=== PATIENT | male | born 2005 | race Caucasian/White ===

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

== ENCOUNTER → 2025-08-28 | Outpatient (CLI) | payer OTHER, SELFPAY ==
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
--- NOTE | 2025-08-28 07:55 | US_ITS ---
PROCEDURE: ABDOMEN LIMITED 08/28/2025 REASON FOR EXAM: ASSESS FOR CAUSE OF PAIN, RUQ PAIN TECHNIQUE: Procedure Code: USABDL Modality: US Procedure: ABDOMEN LIMITED COMPARISON: None FINDINGS: Liver: Diffusely echogenic suggesting fatty infiltration. Liver measures 13.4 cm. Gallbladder: No stones, sludge, wall thickening or tenderness. Common bile duct: Normal measuring 2.6 mm . Pancreas: Normal Other: Visualized portions of the right kidney are unremarkable. No right upper quadrant ascites. US/Abdomen Limited IMPRESSION: Fatty infiltration of the liver. Reading Location: [place] [id number]
[2025-08-28 08:45] LABS: Hematocrit 43.6 % (40-54); Hemoglobin 15.1 g/dL (13.0-16.5); Immature Granulocytes Count 0.010 X10^3/uL (0.0-0.0); Mean Corp Hgb Conc 34.6 g/dL (32-36); Mean Corpuscular Volume 85.8 fL (80-94); Mean Platelet Vol. 9.6 fl (6.2-12.0); NRBC Flagged by Analyzer 0 % (0-5); Platelet Count 321 K/mm3 (150-450); RBC Distribution Width CV 11.4 % (11.6-14.6); RBC Distribution Width SD 35.6 fl (35.1-43.9); Red Blood Count 5.08 M/mm3 (4.6-6.2); White Blood Count 5.7 K/mm3 (4.4-11.0)
[2025-08-28 09:33] LABS: Amylase 30 U/L (28-100); Lipase 19 U/L (13-75)
[2025-08-28 09:50] LABS: AST(SGOT) 25 U/L (<=37); Albumin, Serum 4.6 g/dL (3.5-5.0); Alkaline Phosphatase 90 U/L (40-129); Anion Gap 11 (5-15); BUN 12 mg/dL (4-19); BUN/Creat Ratio 12.4 RATIO (10-20); Calcium,Total 9.7 mg/dL (7.6-11.0); Carbon Dioxide 25.4 mmol/L (21.0-32.0); Chloride 103 mmol/L (98-108); Globulin 3.0 g/dL (2.2-4.2); Glucose 100 mg/dL (70-99); Potassium 4.1 mmol/L (3.3-5.1)
[2025-08-28 10:24] LABS: Alanine Aminotransfer ALT/SGPT 28 U/L (<=46)
== END | disposition home or self-care (01) ==
LOC: US 07:50
PROVIDERS: PCP Nurse Practitioner Family; Referring Provider Nurse Practitioner Family; Visit Provider Nurse Practitioner Family
DX: R10.11 Right upper quadrant pain (principal)
CPT/HCPCS: 36415; 76705; 80053; 82150; 83690; 85025

== ENCOUNTER 2025-09-04 12:11 | Day surgery (SDC) | payer OTHER, SELFPAY ==
--- NOTE | 2025-09-03 14:04 | HP.PCM_ITS ---
History and Physical Date of Admission: 09/04/25 Date of Service: 09/02/25 MR#: [id number] Acct: [id number] Name: HEIKE AMAYA Rep #: [id number] : 2005 Provider: Dr. Shelia Gerber MD Age/Sex: 19/M Location: [facility] Status: Signed Intake Vital Signs 06/09/2508:59 09/02/2510:07 Height 5 ft 10 in 5 ft 10 in Weight: 200 lb BMI 28.7 BP 146/88 H Blood Pressure Location Rt brachial Position Sitting Respiration 14 Pulse 71 Pulse Source NIBP Temp 98.2 F Temp Source Temporal Pulse Oximetry (%) 98 Oxygen Delivery Method room air Intake Visit Reasons: gallbladder Life Advisor Required: No Accompanied by: Mother Is patient in pain?: No Allergies amoxicillin Allergy (Verified 09/02/25 11:36) Hives Medications ?Medication ?Instructions ?Recorded ?Confirmed ?Type omeprazole 20 mg capsule,delayed 40 mg PO QDAY 09/02/25 09/02/25 History release sucralfate 1 gram tablet 1 g PO 4X/DAY 09/02/25 09/02/25 History Medication Reconciliation completed?: Yes [facility] Medical History (Updated 09/02/25 @ 12:[address] Shelia Gerber MD) Heartburn Non-smoker RUQ pain Acute otitis media, right Physical exam, pre-employment Surgical History (Updated 09/02/25 @ 11:37 by Rhonda Lopez) History of wisdom tooth extraction Family History Father Hypertension Mother Asthma Diabetes GERD (gastroesophageal reflux disease) Depression Social History (Updated 09/02/25 @ 10:08 by Mónica Gill) Smoking Status: Never smoker Smokeless tobacco user: snus alcohol intake: never substance use type: does not use HPI HPI HPI: 19-year-old male presents due to right upper quadrant pain with his mom. Patient is had this for about 6 months has been on omeprazole 20 mg p.o. daily did increase to 40 mg p.o. daily about a month ago. Patient does notes pain if he does not take his medication and has an energy drink. Patient also states he had severe right upper quadrant pain at Thanksgiving even before getting up from the table while he was on the medication but states this pain is similar to his previous pain with the reflux but was more severe. Patient states the pain only lasts for several minutes and did resolve. Patient is never had an EGD. Patient will have an ultrasound of the gallbladder showed normal wall, no Pericholecystic fluid, no gallstones, normal common bile duct, normal LFTs on labs. ROS General General: No weight change, fatigue, colon cancer or breast cancer HEENT HEENT: No difficulty swallowing, eye injury, eye surgery or swollen glands Endo Endocrine: No thyroid disease, diabetes mellitus or thyroid cancer Skin Skin: No rash or changing moles Musc Musculoskeletal: No back problems, arthritis, rheumatoid arthritis or gout Cardio Cardiovascular: No murmur, pacemaker, heart disease, atrial fibrillation, high blood pressure, heart attack or heart stent Psych Psychiatric: No depression or anxiety Resp Respiratory: No shortness of breath, No sleep apnea, No cough, No COPD, No asthma and No emphysema Gastro Gastrointestinal: Yes abdominal pain, No nausea or vomiting, No diarrhea, No constipation, No blood in stool, Yes acid reflux, No hemorrhoids, Yes ulcers, No gallbladder problem and No black,tarry stools Terrance Hematologic: No blood thinners, No blood disorders, No bleeding, No anemia and No blood clots Neuro Neurologic: No numbness and No tingling Exam Const General: cooperative, healthy appearing, comfortable and no acute distress [facility] Head: normocephalic and atraumatic Neck Neck: supple Resp Effort & Inspection: normal respiratory effort Cardio Rate: regular rate GI Inspection: non-distended Palpation: soft and nontender Skin General: no rashes or lesions noted Neuro General: CN's II-XI intact bilaterally Extrem General: normal to inspection Psych Mental Status: mental status grossly normal Attitude: cooperative Assessment and Plan Assessment and Plan (1) RUQ pain: Status: Acute (2) Heartburn: Status: Acute Orders: Orders Hepatobilliary Img w/Pharm Int Today R10.11 - Right upper quadrant pain Plan Patient thinks he does have Carafate from his PCP will plan to pick that up and started again. Plan also order HIDA scan as his gallbladder ultrasound did not show any stones. History does sound more like gastric in etiology. I have discussed the above with the patient. I have offered the patient esophagogastroduodenoscopy for evaluation. I have explained the risks/benefits of the procedure and described the procedure. I have discussed the risks with the patient, including but not limited to: infection, bleeding, perforation of the GI tract requiring emergency surgery, inability to complete the procedure, injury to any internal organs, complications of anesthesia, etc. - the patient understands and agrees to proceed. I have answered all the patient's questions to the patient's satisfaction and the patient has no further questions. Shelia Gerber M.D. Pager: [phone] [facility] [address] [place] [address], [address] [place] [address] Office: [phone] Coding Level of Care Code Off vis,new,level 3 Diagnoses RUQ pain R10.11 Heartburn R12 Additional Codes Intake - Is patient in pain?: No (1126F) Intake - Medication Reconciliation completed?: Yes (1160F) 09/02/25 1210 <Electronically signed by Shelia Gerber MD> Date Shelia Gerber MD
[2025-09-04] VITALS (9 sets, daily range): BP systolic 117–126; BP diastolic 64–73; PULSE 52–68; RESP 12–20; TEMP 36.6–36.8; O2SAT 97–100; BMI 27.8
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
[2025-09-04] MEDS: Lactated Ringers 1,000 ML 15 ML IV (12:43)
--- NOTE | 2025-09-04 13:13 | PRE.ANES_ITS ---
ASA Classification* ASA Classification ASA Classification: 2 Assessment & Plan Anesthesia* Anesthesia Assessment Anesthesia Assessment: Discussed sedation and/or anesthesia options, risks, benefits, and alternatives with patient/parents/legal guardian/POA. Questions invited. The patient/parents/legal guardian/POA seems to understand and agrees to proceed with anesthesia plan. Reviewed the physical assessment, medical history, allergy history and patient home medications list prior to surgery/procedure/anesthetic and documented any changes. Performed airway and anesthesia risk assessments. Anesthesia Type Anesthesia Type: MAC History Source History Obtained from:: Patient and Chart Anesthesia Focused Assessment* Temperature: 98.2 F Pulse Rate: 60 Blood Pressure: 126/73 Respiratory Rate: 12 Pulse Ox: 100 Oxygen Delivery Method: Room Air Airway Assessment Mouth opens: >3 cm Mallampati Score: II Teeth Condition: Intact Neck Range of motion (ROM): Full ROM Labs Anesthesia Preop lab: CBC WBC, (4.4-11.0) 5.7 K/mm3 08/28/25, 07:53 RBC, (4.6-6.2) 5.08 M/mm3 08/28/25, 07:53 Hgb, (13.0-16.5) 15.1 g/dL 08/28/25, 07:53 Hct, (40-54) 43.6 % 08/28/25, 07:53 Plt Count, (150-450) 321 K/mm3 08/28/25, 07:53 CHEMISTRY Potassium, (3.3-5.1) 4.1 mmol/L 08/28/25, 07:53 Sodium, (133-145) 140 mmol/L 08/28/25, 07:53 BUN, (4-19) 12 mg/dL 08/28/25, 07:53 Creatinine, (0.70-1.20) 1.00 mg/dL 08/28/25, 07:53 Glucose, (70-99) 100 mg/dL H 08/28/25, 07:53 COAG Pre-Assessment Diagnosis/Proposed Procedure Planned Operative Procedure(s): EGD Anesthesia History Anesthesia History - bisque ware dipper: Anesthesia History - bisque ware dipper Hx Hospitalization No 09/02/25 11:37 Any Problems With Anesthesia No 09/02/25 11:37 Cholinesterase deficiency No 09/02/25 11:37 You/Your Family Experience No 09/02/25 11:37 fever (hyperthermia) with Relationship Recent Exposure to Contagious No 09/04/25 12:33 Disease Does patient have nerve No 09/02/25 11:37 stimulator Patient instructed to have device shut off --Does patient have Pacemaker No 09/04/25 12:33 or ICD? When Was Last Pacemaker Check QUESTION #4 FULL TEXT: You/Your Family Experience fever (hyperthermia) with Anesthesia Last Oral Intake Last Oral intake: Last Oral Intake NPO since 20:00 09/04/25 12:33 Meds taken in AM with sips of No 09/04/25 12:33 water? Meds patient instructed to take am of surgery PONV PONV - bisque ware dipper: PONV - bisque ware dipper Female No 09/02/25 11:37 HX of Motion Sickness No 09/02/25 11:37 HX of N/V After Surgery No 09/02/25 11:37 Non-Smoker Yes 09/02/25 11:37 Duration of Surgery greater No 09/02/25 11:37 than 60 minutes Number of Risk Factors 1 09/02/25 11:37 PONV Score Low Risk 09/02/25 11:37 Height & Weight Height & Weight: Anesthesia: Height & Weight Height 5 ft 10 in 09/04/25 12:33 Weight: 88 kg 09/04/25 12:33 Body Mass Index (BMI) 27.8 09/04/25 12:33 Respiratory Assessment Respiratory Assessment - bisque ware dipper: Respiratory Tract Infection Hx - bisque ware dipper Hx Respiratory Tract Infection No 09/02/25 11:37 STOP Sleep Apnea STOP Sleep Apnea - bisque ware dipper: STOP Sleep Apnea - bisque ware dipper Hx Hypertension No 09/02/25 11:37 Hx Sleep Apnea No 09/02/25 11:37 CPAP BIPAP Do you snore loudly (louder No 09/02/25 11:37 than talking or can be heard Do you often feel tired/ No 09/02/25 11:37 fatigued/ sleepy during daytime? Has anyone observed you stop No 09/02/25 11:37 breathing during sleep? STOP Results Negative 09/02/25 11:37 QUESTION #5 FULL TEXT : Do you snore loudly (louder than talking or can be heard through closed doors)? 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 Specify any problems Hx of Preganancy in last 3 N/A 09/02/25 11:37 Months Nurse Filling Out Transfusion VLEHMAN 09/02/25 11:37 & Questions: Date: 09/02/25 09/02/25 11:37 Time: 11:42 09/02/25 11:37 Patient unable to answer at this time (ie. confused, unrespo /Reproduction History /Reproductive History - bisque ware dipper: /Reproductive Hx- bisque ware dipper Hx Now No 09/02/25 11:37 Gestational Age (in weeks): EDC: Hx Hx Para Hx Section SAB No 09/02/25 11:37 Does the father of the baby or his family experience fever w Father of the baby Malignant Hypertension history comment Active Medications Active Medications: Current Medications Generic Name Dose Route Start Last Admin Trade Name Freq PRN Reason Stop Dose Admin Lactated Ringer's 1,000 mls @ 15 mls/hr 09/04/25 12:30 09/04/25 12:43 IV 15 mls/hr .Q48H LUCÍA Administration PFSH Medical History Heartburn Non-smoker RUQ pain Acute otitis media, right Physical exam, pre-employment Home Medications ?Medication ?Instructions ?Recorded ?Last Taken ?Type omeprazole 20 mg capsule,delayed 40 mg PO QDAY 5 09/03/25 History release sucralfate 1 gram tablet 1 g PO 4X/DAY 09/02/2509/03 History Allergy/AdvReac Type Severity Reaction Status Date / Time amoxicillin Allergy Hives Verified 09/04/25 12:35 Family History Father Hypertension Mother Asthma Diabetes GERD (gastroesophageal reflux disease) Depression Surgical History History of wisdom tooth extraction Social History Smoking Status: Never smoker Smokeless tobacco user: snus alcohol intake: never substance use type: does not use Addt'l Information Additional Findings: > 4 mets Review of Systems (Anesthesia) ROS Narrative System reviewed and no additional complaints, except as documented. Physical Exam Const alert, oriented x3 and average body habitus HEENT dentition normal Resp normal respiratory effort, normal air movement and clear to auscultation bilaterally Auscultation: clear to auscultation bilaterally Cardio regular rate and regular rhythm Back/Spine normal ROM Neuro oriented x3 and moves all extremities Motor Exam: muscle tone normal throughout
--- NOTE | 2025-09-04 13:30 | EGD_PTH ---
PATIENT: HEIKE AMAYA LOC: EN U#:[id number] AGE/SX: 19/M ROOM: RE09/04/[address]: Dr. Shelia Gerber MD : 2005 BED: DIS: 09/04/2025 SPEC #: [id number] RECD: 09/04/25 16:02 STATUS: ELYSIA REJoy #: [id number] CESAR: 09/04/25 13:[address]: Shelia Gerber DEPT: SURGICAL PATHOLOGY RECD BY: Adria Christina ENTERED: 09/05/25 09:50 SP TYPE: EGD BIOPSY OT DR: Paula Chaves, NEGOTIATOR-C Tissues: A - Gastric mucous membrane Procedures: Immunohistochemical Stains Surgery Specimen Level IV HEADER OPERATION: EGD with biopsy PRE-OP DIAGNOSIS: Right upper quadrant pain, heartburn TISSUE SUBMITTED: A- Antrum biopsy MICROSCOPIC DIAGNOSIS A. Stomach, antrum, biopsy: - Active chronic inflammation. - IHC negative for H. pylori organisms. MICROSCOPIC DESCRIPTION Slides are reviewed. All matched controls reacted appropriately. These tests were developed and their performance characteristics determined by [facility]. They may not have been cleared or approved by the U.S. Food and Drug Administration. The FDA has determined that such clearance or approval is not necessary. The above immunohistochemical markers and/or special?stains have been reviewed by the Pathologist. GROSS DESCRIPTION A. Received in fixative is one container labeled with the patient's name and designated Antrum biopsy. The specimen consists of one irregular fragment of waters tissue that measures 0.4 cm. The specimen is totally submitted in one cassette. AR 09/05/2025 CPT:83039,50166
--- NOTE | 2025-09-04 15:36 | PCM.POST.ANE ---
Anesthesia: Postop Eval I Current Vital Signs Temperature: 98.0 F Pulse Rate: 68 Blood Pressure: 119/68 Respiratory Rate: 20 Pulse Ox: 98 Oxygen Delivery Method: Room Air Assessment Airway patent: Yes Spontaneous unlabored respirations: Yes Mental status: Awake and Calm nausea: No Vomiting: No Anesthesia Complication: No Fluid Hydration Crystalloid volume administer (ml): 200 Total IV fluid infused: 200 Progress Note Anesthesia document: Postop Eval 1 completed: Yes
--- NOTE | 2025-09-04 15:42 | OP.EGD_ITS ---
Patient Name: Franklin Loo Procedure Date: 09/04/2025 3:14 PM Date of : 2005 Age: 19 Procedure: Upper GI endoscopy Indications: Abdominal pain in the right upper quadrant Providers: Lucian Isabel MD Referring MD: Nigel Ling Medicines: Propofol per Anesthesia Patient Profile: This is a 19 year old male. Refer to note in patient chart for documentation of history and physical. Complications: No immediate complications. Estimated blood loss: Minimal. Procedure: Pre-Anesthesia Assessment: - Prior to the procedure, a History and Physical was performed, and patient medications and allergies were reviewed. The patient's tolerance of previous anesthesia was also reviewed. The risks and benefits of the procedure and the sedation options and risks were discussed with the patient. All questions were answered, and informed consent was obtained. Prior Anticoagulants: The patient has taken no anticoagulant or antiplatelet agents. After reviewing the risks and benefits, the patient was deemed in satisfactory condition to undergo the procedure. After obtaining informed consent, the endoscope was passed under direct vision. Throughout the procedure, the patient's blood pressure, pulse, and oxygen saturations were monitored continuously. The gastroscope was introduced through the mouth, and advanced to the third part of duodenum. The upper GI endoscopy was accomplished without difficulty. The patient tolerated the procedure well. Scope In: 3:25:18 PM Scope Out: 3:27:58 PM Total Procedure Duration Time 0 hours 2 minutes 40 seconds Findings: The esophagus was normal. The stomach was normal. The examined duodenum was normal. Biopsies were taken with a cold forceps in the gastric antrum for Helicobacter pylori testing. Impression: - Normal esophagus. - Normal stomach. - Normal examined duodenum. - Biopsies were taken with a cold forceps for Helicobacter pylori testing. Recommendation: - Discharge patient to home (ambulatory). - Resume previous diet. - Continue present medications. Procedure Code(s): --- Professional --- 42961, Esophagogastroduodenoscopy, flexible, transoral; with biopsy, single or multiple Diagnosis Code(s): --- Professional --- R10.11, Right upper quadrant pain CPT copyright 2021 [employer]. All rights reserved. The codes documented in this report are preliminary and upon pulpwood buyer review may be revised to meet current compliance requirements. Lucian Isabel MD 09/04/2025 3:41:43 PM This report has been signed electronically. Number of Addenda: 0 Note Initiated On: 09/04/2025 3:14 PM
--- NOTE | 2025-09-04 15:42 | OP.PROVAT_ITS ---
09/04/2025 Nigel Ling Re : Upper GI endoscopy procedure for Franklin Sanchezr Anastacio This procedure was performed on Thursday, September 04, 2025. My impressions and recommendations are as follows: Impressions : - Normal esophagus. - Normal stomach. - Normal examined duodenum. - Biopsies were taken with a cold forceps for Helicobacter pylori testing. Recommendations : - Discharge patient to home (ambulatory). - Resume previous diet. - Continue present medications. My findings are described in the full procedure note, which is enclosed. If I can be of further assistance, please feel free to contact me at Doctor phone number(s): , Work: . Sincerely, Lucian Isabel MD 09/04/2025 3:41:43 PM This report has been signed electronically.
--- NOTE | 2025-09-04 17:36 | POSTOPAN2_ITS ---
Anesthesia Postop Eval I Sum Postop Eval Completion status Anesthesia document: Postop Eval 1 completed: Yes Anesthesia Postop Eval I Summary Anesthesia Postop Eval I Summary: Anesthesia Postop Eval I: Assessment Summary Airway patent Yes 09/04/25 15:36 SPRING COILER HAND.PKEL Spontaneous unlabored Yes 09/04/25 15:36 SPRING COILER HAND.PKEL respirations Mental status Awake,Calm 09/04/25 15:36 SPRING COILER HAND.PKEL nausea No 09/04/25 15:36 SPRING COILER HAND.PKEL Vomiting No 09/04/25 15:36 SPRING COILER HAND.PKEL Anesthesia Postop Eval I: Fluid Summary Crystalloid volume administer 200 09/04/25 15:36 SPRING COILER HAND.PKEL (ml) Colloids volume administered ( ml) Blood Product volume administered (ml) Total IV fluid infused 200 09/04/25 15:36 SPRING COILER HAND.PKEL Anesthesia Postop Eval I: Summary Notes Anesthesia Complication No 09/04/25 15:36 SPRING COILER HAND.PKEL Anesthesia Complication Comment: Post-operative progress note Anesthesia: Postop Eval II Evaluation Mental status: Awake and Calm Pain Level: 0 nausea: No Vomiting: No Complications Anesthesia Complication: No
--- NOTE | 2025-09-04 17:36 | PCM.POSTANE2 ---
Anesthesia Postop Eval I Sum Postop Eval Completion status Anesthesia document: Postop Eval 1 completed: Yes Anesthesia Postop Eval I Summary Anesthesia Postop Eval I Summary: Anesthesia Postop Eval I: Assessment Summary Airway patent Yes 09/04/25 15:36 [email or web address] Spontaneous unlabored Yes 09/04/25 15:36 [email or web address] respirations Mental status Awake,Calm 09/04/25 15:36 [email or web address] nausea No 09/04/25 15:36 [email or web address] Vomiting No 09/04/25 15:36 [email or web address] Anesthesia Postop Eval I: Fluid Summary Crystalloid volume administer 200 09/04/25 15:36 [employer] MAIN[employer] [email or web address] (ml) Colloids volume administered ( ml) Blood Product volume administered (ml) Total IV fluid infused 200 09/04/25 15:36 [employer] [email or web address] Anesthesia Postop Eval I: Summary Notes Anesthesia Complication No 09/04/25 15:36 [employer] MAIN[employer] [email or web address] Anesthesia Complication Comment: Post-operative progress note Anesthesia: Postop Eval II Evaluation Mental status: Awake and Calm Pain Level: 0 nausea: No Vomiting: No Complications Anesthesia Complication: No
== END 2025-09-04 16:04 | disposition home or self-care (01) ==
LOC: EN 12:12 → AC 12:13
PROVIDERS: Surgery; PCP Nurse Practitioner Family; Referring Provider Nurse Practitioner Family; Visit Provider Surgery
PROC: 0DJ08ZZ Inspection of Upper Intestinal Tract, Via Natural or Artificial Opening Endoscopic (ICD-10-PCS; CPT 43235; principal; 2025-09-04 13:25)
DX: K29.50 Unspecified chronic gastritis without bleeding (principal); K21.9 Gastro-esophageal reflux disease without esophagitis; Z79.899 Other long term (current) drug therapy
CPT/HCPCS: 44361; 88305; 88342

== ENCOUNTER → 2025-09-06 | Outpatient (CLI) | payer OTHER, SELFPAY ==
--- NOTE | 2025-09-06 08:36 | NM_ITS ---
PROCEDURE: HEPATOBILLIARY IMG W/PHARM INT 09/06/2025 REASON FOR EXAM: ABDOMINAL PAIN TECHNIQUE: Procedure Code: [id number] Modality: NM Procedure: HEPATOBILLIARY IMG W/PHARM INT, with gallbladder ejection fraction. Intravenous Choletec with planar imaging of the abdomen. RADIOPHARMACEUTICAL: Intravenous administration of 6 mCi technetium 99 M mebrofenin. For the gallbladder ejection fraction component, intravenous administration of 1.8 cholecystokinin over 15 minutes. COMPARISON: None. FINDINGS: Satisfactory hepatic uptake and excretion is seen.. Normal gallbladder visualization with the gallbladder identified by 10 minutes. Although small bowel activity was not seen in the initial images, following cholecystokinin administration, small bowel activity clearly seen by the 15 minute film. Gallbladder ejection fraction: 66% at 29 minutes. NM/Hepatobilliary Img w/Pharm Int IMPRESSION: 1. Normal gallbladder ejection fraction of 66%. 2. Negative hepatobiliary scan, otherwise. Reading Location: [id number]
== END | disposition home or self-care (01) ==
LOC: NM 08:34
PROVIDERS: PCP Nurse Practitioner Family; Referring Provider Surgery; Visit Provider Surgery
DX: R10.11 Right upper quadrant pain (principal)
CPT/HCPCS: 78227; A9537; J2805

== ENCOUNTER → 2025-09-06 | Outpatient (CLI) | payer OTHER, SELFPAY | END | disposition home or self-care (01) | PROVIDERS: PCP Nurse Practitioner Family; Referring Provider Family Medicine; Visit Provider Family Medicine | DX: E74.29 Other disorders of galactose metabolism (principal) | CPT/HCPCS: 36415 ==